=== PATIENT | female | born 1935 | race African-American/Black ===

== ENCOUNTER 2016-11-15 11:35 | Inpatient (IN) | payer MEDICARE, MEDICAID ==
[~2016-11-15 11:35] MED LIST: AGGRENOX CAP1 BOTTLE; AGGRENOX1 CAP PO; AMBIEN10 MG; AMBIEN5 MG; AMLODIPINE BESYL5 MG PO; ASPIRIN81 M1 PO; ATENOLOL; ATENOLOL100 MG; ATENOLOL25 MG; ATENOLOL50 MG; BYSTOLIC10 M1 PO; BYSTOLIC10 MG PO; BYSTOLIC5 MG PO; CHOLESTEROL MED; CLINDAMYCIN HC300 M2 PO; COLACE100 M1 PO; ESTRADIOL0.5 M1 PO; ESTRADIOL0.5 M2 PO; GLIPIZIDE XL10 M1 PO; GLIPIZIDE XL5 M1 PO; GLIPIZIDE5 MG PO; GLUCOTROL10 M1 PO; HYDROCHLOROTHIA25 M1 PO; HYDROCHLOROTHIA25 MG; IMDUR30 MG PO; LIPITOR20 M1 PO; LIPITOR40 M1 PO; LISINOPRIL10 M1 PO; LISINOPRIL20 M1 PO; LISINOPRIL40 M1 PO; LISINOPRIL40 MG PO; LISINOPRIL5 M1 PO; LOSARTAN POTASS50 M1 PO; MINIPRESS1 M1 PO; MIRALAX17 G2 PO; NEURONTIN300 MG PO; NITROTAB0.3 MG SL; NORCO 5-325 TA1 EACH PO; NORCO 5/325 TAB1 TAB; NORCO 5/325 TAB1 TAB PO; NORVASC5 MG; NORVASC5 MG PO; PLAVIX75 M1 PO; POTASSIUM CHLO10 ME2 PO; POTASSIUM CHLO10 MEQ; PREMARIN; PREMARIN0.3 MG; PREMARIN0.45 MG; PREMARIN0.45 MG PO; PROVERA2.5 MG PO; REGLAN10 MG PO; SENNA-DOCUSATE1 EAC1 PO; SENOKOT-S TABL1 EACH PO; SIMVASTATIN20 MG PO; TEKTURNA300 MG; TRADJENTA5 M1 PO; TRADJENTA5 MG PO; TRIGINTA PO; ZESTRIL2.5 MG; ZESTRIL40 MG; ZOCOR40 MG; ZOCOR40 MG PO; ZOCOR80 MG; ZOFRAN4 M2 PO; ZOLPIDEM TARTRAT5 M2 PO; [UNRECOGNIZED DRUG - OTHER]
[2016-11-15] MEDS ORDERED: ELIQUIS2.5 M1 PO (11:55)
[2016-11-15] MEDS ORDERED: LEVEMIR FL100 UNIT/2 SC (11:57)
[2016-11-15 12:15] LABS: BASO % 0.6 % (0-2); EOS % 1.3 % (0-7); EOSINOPHIL ABSOLUTE COUNT 0.1 tho/cmm (0.0-0.7); HCT-HEMATOCRIT 25.7 % (34.0-49.0); HGB-HEMOGLOBIN 8.5 gm/dl (12.0-15.5); IMMATURE GRANULOCYTES ABSOLUTE 0.01 tho/cmm (0-0.03); IMMATURE GRANULOCYTES PERCENT 0.2 % (0-0.3); LYMPH % 36.1 % (20-45); LYMPH ABSOLUTE COUNT 1.9 tho/cmm (0.8-4.5); MCH (MEAN CORPUSCULAR HGB) 28.9 pg (28.0-32.0); MCHC MEAN CORPUSCULAR HGB CONC 33.1 % (32.0-36.0); MCV (MEAN CELL VOLUME) 87.4 fl (82.0-96.0); MEAN PLATELET VOLUME 10.2 cmc (9.4-12.4); MONO % 10.8 % (0-12); MONOCYTE ABSOLUTE COUNT 0.6 tho/cmm (0.0-1.2); NEUTROPHIL ABSOLUTE COUNT 2.7 tho/cmm (1.6-8.0); NEUTROPHIL-AUTOMATED 2.7 tho/cmm (1.6-8.0); PLATELET COUNT 242 tho/cmm (150-450); RED BLOOD COUNT 2.94 mil/cmm (4.00-5.20); RED CELL DISTRIBUTION WIDTH 13.8 % (12.4-16.4); WHITE BLOOD COUNT 5.3 tho/cmm (4.0-10.0)
[2016-11-15 12:22] LABS: INR 1.3 INR (0.9-1.1)
[2016-11-15 12:31] LABS: ALB/GLOB RATIO 0.9 (0.8-2.0); ALBUMIN 3.5 g/dl (3.5-5.0); ALKALINE PHOSPHATASE 87 U/L (33-138); ALT/SGPT 29 U/L (12-78); ANION GAP 11 mmol/L (0-20); AST/SGOT 22 U/L (10-40); BILIRUBIN,TOTAL 0.3 mg/dl (0-1.5); BLOOD UREA NITROGEN 14 mg/dl (6-24); CALCIUM 8.9 mg/dl (8.5-10.5); CARBON DIOXIDE-VENOUS 27 mmol/L (22-32); CHLORIDE 107 mmol/l (96-110); CREATININE 0.87 mg/dl (0.50-1.10); GLUCOSE 136 mg/dL (70-110); POTASSIUM 3.1 mmol/L (3.7-5.1); SODIUM 142 mmol/L (135-145); eGFR VALUE FOR BLACK 72 mL/Min
[2016-11-15 12:36] LABS: ESR-ERYTHROCYTE SED RATE 59 mm/hr (0-30)
[2016-11-16 04:39] LABS: ALB/GLOB RATIO 0.9 (0.8-2.0); ALBUMIN 3.2 g/dl (3.5-5.0); ALKALINE PHOSPHATASE 80 U/L (33-138); ALT/SGPT 29 U/L (12-78); AST/SGOT 19 U/L (10-40); BILIRUBIN,DIRECT 0.1 mg/dl (0.0-0.3); BILIRUBIN,INDIRECT 0.4 mg/dL (0.0-1.0); BLOOD UREA NITROGEN 11 mg/dl (6-24); CALCIUM 8.8 mg/dl (8.5-10.5); CARBON DIOXIDE-VENOUS 27 mmol/L (22-32); CHLORIDE 109 mmol/l (96-110); CHOLESTEROL 119 mg/dl (120-200); CREATININE 0.63 mg/dl (0.50-1.10); GLUCOSE 98 mg/dL (70-110); HDL CHOLESTEROL 48 mg/dl (40-60); LDL CHOLESTEROL 61 mg/dl (0-99); MAGNESIUM 2.1 mg/dl (1.8-2.6); SODIUM 145 mmol/L (135-145); TRIGLYCERIDES 53 mg/dl (<149); VLDL 11 mg/dl (0-30); eGFR VALUE FOR BLACK >90 mL/Min
[2016-11-16 04:40] LABS: BASO % 0.6 % (0-2); EOS % 1.1 % (0-7); EOSINOPHIL ABSOLUTE COUNT 0.1 tho/cmm (0.0-0.7); HCT-HEMATOCRIT 26.3 % (34.0-49.0); HGB-HEMOGLOBIN 8.6 gm/dl (12.0-15.5); IMMATURE GRANULOCYTES ABSOLUTE 0.01 tho/cmm (0-0.03); IMMATURE GRANULOCYTES PERCENT 0.2 % (0-0.3); LYMPH % 36.9 % (20-45); MCH (MEAN CORPUSCULAR HGB) 28.6 pg (28.0-32.0); MCHC MEAN CORPUSCULAR HGB CONC 32.7 % (32.0-36.0); MCV (MEAN CELL VOLUME) 87.4 fl (82.0-96.0); MONOCYTE ABSOLUTE COUNT 0.5 tho/cmm (0.0-1.2); NEUTROPHIL ABSOLUTE COUNT 2.9 tho/cmm (1.6-8.0); NEUTROPHIL-AUTOMATED 2.9 tho/cmm (1.6-8.0); NEUTROPHILS % 52.2 % (40-80); PLATELET COUNT 261 tho/cmm (150-450); RED BLOOD COUNT 3.01 mil/cmm (4.00-5.20); RED CELL DISTRIBUTION WIDTH 13.8 % (12.4-16.4); WHITE BLOOD COUNT 5.5 tho/cmm (4.0-10.0)
[2016-11-16 05:06] LABS: ANION GAP 12 mmol/L (0-20); BILIRUBIN,TOTAL 0.5 mg/dl (0-1.5)
[2016-11-17 05:34] LABS: BASO % 0.6 % (0-2); EOS % 1.3 % (0-7); EOSINOPHIL ABSOLUTE COUNT 0.1 tho/cmm (0.0-0.7); HCT-HEMATOCRIT 25.4 % (34.0-49.0); HGB-HEMOGLOBIN 8.4 gm/dl (12.0-15.5); LYMPH % 36.2 % (20-45); LYMPH ABSOLUTE COUNT 1.9 tho/cmm (0.8-4.5); MCH (MEAN CORPUSCULAR HGB) 29.1 pg (28.0-32.0); MCHC MEAN CORPUSCULAR HGB CONC 33.1 % (32.0-36.0); MCV (MEAN CELL VOLUME) 87.9 fl (82.0-96.0); MEAN PLATELET VOLUME 10.2 cmc (9.4-12.4); MONO % 9.8 % (0-12); MONOCYTE ABSOLUTE COUNT 0.5 tho/cmm (0.0-1.2); NEUTROPHIL ABSOLUTE COUNT 2.8 tho/cmm (1.6-8.0); NEUTROPHIL-AUTOMATED 2.8 tho/cmm (1.6-8.0); NEUTROPHILS % 52.1 % (40-80); PLATELET COUNT 250 tho/cmm (150-450); RED BLOOD COUNT 2.89 mil/cmm (4.00-5.20); RED CELL DISTRIBUTION WIDTH 13.9 % (12.4-16.4); WHITE BLOOD COUNT 5.3 tho/cmm (4.0-10.0)
[2016-11-17 05:51] LABS: ANION GAP 10 mmol/L (0-20); BLOOD UREA NITROGEN 6 mg/dl (6-24); CALCIUM 8.5 mg/dl (8.5-10.5); CARBON DIOXIDE-VENOUS 30 mmol/L (22-32); CHLORIDE 111 mmol/l (96-110); CREATININE 0.66 mg/dl (0.50-1.10); GLUCOSE 92 mg/dL (70-110); POTASSIUM 3.7 mmol/L (3.7-5.1); SODIUM 147 mmol/L (135-145); eGFR VALUE FOR BLACK >90 mL/Min
[2016-11-17 06:22] LABS: TSH-THYROID STIMULATING HORM. 1.35 uIU/ml (0.40-3.80)
[2016-11-18 06:01] LABS: BASO % 0.5 % (0-2); EOS % 1.8 % (0-7); EOSINOPHIL ABSOLUTE COUNT 0.1 tho/cmm (0.0-0.7); HCT-HEMATOCRIT 27.1 % (34.0-49.0); HGB-HEMOGLOBIN 8.8 gm/dl (12.0-15.5); LYMPH % 43.9 % (20-45); LYMPH ABSOLUTE COUNT 1.9 tho/cmm (0.8-4.5); MCH (MEAN CORPUSCULAR HGB) 28.5 pg (28.0-32.0); MCHC MEAN CORPUSCULAR HGB CONC 32.5 % (32.0-36.0); MCV (MEAN CELL VOLUME) 87.7 fl (82.0-96.0); MEAN PLATELET VOLUME 10.1 cmc (9.4-12.4); MONO % 12.5 % (0-12); MONOCYTE ABSOLUTE COUNT 0.6 tho/cmm (0.0-1.2); NEUTROPHIL ABSOLUTE COUNT 1.8 tho/cmm (1.6-8.0); NEUTROPHIL-AUTOMATED 1.8 tho/cmm (1.6-8.0); NEUTROPHILS % 41.3 % (40-80); PLATELET COUNT 255 tho/cmm (150-450); RED BLOOD COUNT 3.09 mil/cmm (4.00-5.20); RED CELL DISTRIBUTION WIDTH 13.9 % (12.4-16.4); WHITE BLOOD COUNT 4.4 tho/cmm (4.0-10.0)
[2016-11-18 06:11] LABS: ANION GAP 12 mmol/L (0-20); BLOOD UREA NITROGEN 4 mg/dl (6-24); CALCIUM 8.4 mg/dl (8.5-10.5); CARBON DIOXIDE-VENOUS 27 mmol/L (22-32); CHLORIDE 108 mmol/l (96-110); CREATININE 0.77 mg/dl (0.50-1.10); POTASSIUM 3.7 mmol/L (3.7-5.1); SODIUM 143 mmol/L (135-145); eGFR VALUE FOR BLACK 84 mL/Min
[2016-11-18 06:17] LABS: GLUCOSE 152 mg/dL (70-110)
[2016-11-20 05:13] LABS: BASO % 0.2 % (0-2); HCT-HEMATOCRIT 29.2 % (34.0-49.0); HGB-HEMOGLOBIN 9.7 gm/dl (12.0-15.5); IMMATURE GRANULOCYTES ABSOLUTE 0.02 tho/cmm (0-0.03); IMMATURE GRANULOCYTES PERCENT 0.2 % (0-0.3); LYMPH % 14.4 % (20-45); LYMPH ABSOLUTE COUNT 1.6 tho/cmm (0.8-4.5); MCH (MEAN CORPUSCULAR HGB) 28.6 pg (28.0-32.0); MCHC MEAN CORPUSCULAR HGB CONC 33.2 % (32.0-36.0); MCV (MEAN CELL VOLUME) 86.1 fl (82.0-96.0); MEAN PLATELET VOLUME 10.1 cmc (9.4-12.4); MONO % 7.2 % (0-12); MONOCYTE ABSOLUTE COUNT 0.8 tho/cmm (0.0-1.2); NEUTROPHIL ABSOLUTE COUNT 8.5 tho/cmm (1.6-8.0); NEUTROPHIL-AUTOMATED 8.5 tho/cmm (1.6-8.0); PLATELET COUNT 216 tho/cmm (150-450); RED BLOOD COUNT 3.39 mil/cmm (4.00-5.20); RED CELL DISTRIBUTION WIDTH 13.7 % (12.4-16.4)
[2016-11-20 05:22] LABS: ANION GAP 15 mmol/L (0-20); BLOOD UREA NITROGEN 8 mg/dl (6-24); CALCIUM 8.4 mg/dl (8.5-10.5); CARBON DIOXIDE-VENOUS 26 mmol/L (22-32); CHLORIDE 102 mmol/l (96-110); CREATININE 0.76 mg/dl (0.50-1.10); GLUCOSE 124 mg/dL (70-110); MAGNESIUM 1.5 mg/dl (1.8-2.6); POTASSIUM 3.3 mmol/L (3.7-5.1); SODIUM 140 mmol/L (135-145); eGFR VALUE FOR BLACK 85 mL/Min
[2016-11-20 05:26] LABS: WHITE BLOOD COUNT 10.9 tho/cmm (4.0-10.0)
[2016-11-21 06:02] LABS: BASO % 0.3 % (0-2); EOS % 1.6 % (0-7); EOSINOPHIL ABSOLUTE COUNT 0.1 tho/cmm (0.0-0.7); HCT-HEMATOCRIT 30.6 % (34.0-49.0); HGB-HEMOGLOBIN 10.1 gm/dl (12.0-15.5); IMMATURE GRANULOCYTES ABSOLUTE 0.02 tho/cmm (0-0.03); IMMATURE GRANULOCYTES PERCENT 0.3 % (0-0.3); LYMPH % 20.3 % (20-45); LYMPH ABSOLUTE COUNT 1.6 tho/cmm (0.8-4.5); MCH (MEAN CORPUSCULAR HGB) 28.6 pg (28.0-32.0); MCV (MEAN CELL VOLUME) 86.7 fl (82.0-96.0); MEAN PLATELET VOLUME 10.4 cmc (9.4-12.4); MONO % 11.9 % (0-12); MONOCYTE ABSOLUTE COUNT 0.9 tho/cmm (0.0-1.2); NEUTROPHIL ABSOLUTE COUNT 5.1 tho/cmm (1.6-8.0); NEUTROPHIL-AUTOMATED 5.1 tho/cmm (1.6-8.0); NEUTROPHILS % 65.6 % (40-80); PLATELET COUNT 226 tho/cmm (150-450); RED BLOOD COUNT 3.53 mil/cmm (4.00-5.20); RED CELL DISTRIBUTION WIDTH 13.8 % (12.4-16.4); WHITE BLOOD COUNT 7.7 tho/cmm (4.0-10.0)
[2016-11-21 06:11] LABS: ANION GAP 13 mmol/L (0-20); BLOOD UREA NITROGEN 11 mg/dl (6-24); CALCIUM 8.9 mg/dl (8.5-10.5); CARBON DIOXIDE-VENOUS 30 mmol/L (22-32); CHLORIDE 100 mmol/l (96-110); GLUCOSE 128 mg/dL (70-110); POTASSIUM 3.8 mmol/L (3.7-5.1); SODIUM 139 mmol/L (135-145); eGFR VALUE FOR BLACK 80 mL/Min
[2016-11-23] MEDS ORDERED: TYLENOL325 M2 PO (11:51)
[2016-11-23] MEDS ORDERED: NORCO 5-325 TA1 EACH PO (11:51)
[2016-11-23] MEDS ORDERED: GLUCOPHAGE500 M3 PO (11:54)
== END 2016-11-23 13:21 | DRG 330 ==
LOC: EDMED 11:35 → EMR2 14:59 → 5EB 19:30 → ORW 11-19 15:05 → PACU 11-19 17:39 → CCU 11-19 18:32 → 5EB 11-20 23:00
PROVIDERS: Emergency Medicine; Internal Medicine; Nurse Practitioner Acute Care; ADMIT Hospitalist
PROC: 0DTF4ZZ Resection of Right Large Intestine, Percutaneous Endoscopic Approach (ICD-10-PCS; 2016-11-15)
PROC: 0DNK4ZZ Release Ascending Colon, Percutaneous Endoscopic Approach (ICD-10-PCS; 2016-11-15)
PROC: 0DBK8ZX Excision of Ascending Colon, Via Natural or Artificial Opening Endoscopic, Diagnostic (ICD-10-PCS; 2016-11-15)
PROC: 0DJ08ZZ Inspection of Upper Intestinal Tract, Via Natural or Artificial Opening Endoscopic (ICD-10-PCS; principal; 2016-11-18)
DX: C18.2 Malignant neoplasm of ascending colon (principal); D62 Acute posthemorrhagic anemia; I48.91 Unspecified atrial fibrillation; E11.9 Type 2 diabetes mellitus without complications; I65.23 Occlusion and stenosis of bilateral carotid arteries; I25.10 Atherosclerotic heart disease of native coronary artery without angina pectoris; Z95.0 Presence of cardiac pacemaker
CPT/HCPCS: C8929; C9113; G8978-GP-CI; G8979-GP-CI; J0360; J1335; J1815; J2250; J2270; J2405; J3010; J7030; J7040; P9016; Q9967